=== PATIENT | male | born 1970 | race Caucasian/White ===

== ENCOUNTER → 2020-04-17 | Outpatient (CLI) | payer OTHER ==
--- NOTE | 2020-04-15 08:16 | NUR ---
LMOM WITH INSTRUCTIONS AND CALL BACK NUMBER
[~2020-04-17] VITALS: Ht 190.5 cm; Wt 118.2 kg
[~2020-04-17] MED LIST: CELEXA; COMPAZINE 110 MG/TAB PO; KLOR-CON/EF25 MEQ PO; LORTAB 5/500 501 TAB PO; MAG-OX 400400 MG/TAB PO; PROTONIX40 MG/Pack PO; REGLAN 5MG T5 MG/TAB PO; ROXICODONE 55 MG/TAB PO; ZITHROMAX 250M250 MG PO; ZOCOR; ZOFRAN ODT4 MG PO
[2020-04-17 08:33] VITALS: BP 126/91; PULSE 66
[2020-04-17 11:15] VITALS: BP 151/92; PULSE 53
== END | disposition home or self-care (01) ==
LOC: COL.RAD 08:15
DX: C77.0 Secondary and unspecified malignant neoplasm of lymph nodes of head, face and neck (principal); R59.0 Localized enlarged lymph nodes

== ENCOUNTER → 2020-05-06 | Outpatient (CLI) | payer OTHER | LOC: COL.RAD 08:30 | DX: R91.8 Other nonspecific abnormal finding of lung field (principal); C79.9 Secondary malignant neoplasm of unspecified site | CPT/HCPCS: Q9967 ==

== ENCOUNTER → 2020-06-07 | Outpatient (CLI) | payer OTHER ==
[~2020-06-07] VITALS: Ht 188 cm; Wt 121.0 kg
== END ==
LOC: DIET.TELE 12:43
DX: C02.8 Malignant neoplasm of overlapping sites of tongue (principal)
CPT/HCPCS: 98972

== ENCOUNTER 2020-07-17 14:14 | Day surgery (SDC) | payer OTHER ==
[~2020-07-17] VITALS: Ht 190.5 cm; Wt 106.0 kg
[~2020-07-17 14:14] MED LIST changes: -COMPAZINE 110 MG/TAB PO; -KLOR-CON/EF25 MEQ PO; -MAG-OX 400400 MG/TAB PO; -PROTONIX40 MG/Pack PO; -REGLAN 5MG T5 MG/TAB PO; -ROXICODONE 55 MG/TAB PO; -ZITHROMAX 250M250 MG PO; -ZOFRAN ODT4 MG PO
[2020-07-17 15:23] VITALS: BP 121/81; PULSE 83; TEMP 98.7
[2020-07-17] MEDS ORDERED: COMPAZINE 110 MG/TAB PO (15:34)
[2020-07-17] MEDS ORDERED: ROXICODONE 55 MG/TAB PO (15:36)
[2020-07-17 15:54] LABS: ALBUMIN 4.2 gm/dL (3.5-5.0); CALCIUM 8.8 mg/dL (8.4-10.2); CREATININE, serum 0.95 (0.66-1.25); POTASSIUM 5.2 mmol/L (3.4-5.0)
[2020-07-17 17:18] VITALS: BP 125/77; PULSE 81
--- NOTE | 2020-07-17 17:18 | NUR ---
PATIENT TRANSPORTED PER CART FROM OR TO BAY 8 ACCOMPANIED BY OR STAFF. PATIENT TALKING WITH STAFF. MONITORS APPLIED. VSS ON ROOM AIR. VERBAL REPORT RECEIVED FROM OR STAFF. 182 PATIENT DENIES DISCOMFORT AND NAUSEA. PATIENT TAKES SIPS OF WATER.
[2020-07-17 17:30] VITALS: BP 138/76; PULSE 78; TEMP 98.4
--- NOTE | 2020-07-17 17:35 | NUR ---
VSS ON ROOM AIR. PATIENT LOOKING AT PHONE. DENIES DISCOMFORT AND NAUSEA. SIPS WATER WITHOUT PROBLEMS.
[2020-07-17 17:45] VITALS: BP 129/78; PULSE 76
[2020-07-17 18:00] VITALS: BP 136/84; PULSE 74
--- NOTE | 2020-07-17 18:05 | NUR ---
VSS ON ROOM AIR. PATIENT DENIES DISCOMFORT AND NAUSEA. PORT ACCESS DC'D PER PROTOCOL. DISCHARGE INSTRUCTIONS GIVEN VERBAL AND DISCHARGE PACKET PROVIDED. QUESTIONS ANSWERED AND PATIENT VOICED UNDERSTANDING.
--- NOTE | 2020-07-18 10:43 | NUR ---
(Late Entry) [facility] met with patient who will have a PEG tube placed today. Patient lives alone in [place] and sees Dr. Spencer for primary care. Patient does not use any DME and reports independence with ADLS. Patient advised his cousin, Katerina will take him home today. Patient is agreeable to have PEG tube supplies ordered through [facility]. SW discussed Home Health services with patient who declined at this time. SW contacted [facility] and faxed facesheet, H&P, nutrition assessment, and DME order. Patient has no further questions or concerns at this time.
== END 2020-07-17 18:20 | disposition home or self-care (01) ==
LOC: SDCO 14:14
PROVIDERS: Surgery
DX: C76.0 Malignant neoplasm of head, face and neck (principal); C77.0 Secondary and unspecified malignant neoplasm of lymph nodes of head, face and neck; R13.12 Dysphagia, oropharyngeal phase; Z20.822 Contact with and (suspected) exposure to COVID-19; Z95.828 Presence of other vascular implants and grafts; Z92.3 Personal history of irradiation; Z92.21 Personal history of antineoplastic chemotherapy; Z79.899 Other long term (current) drug therapy
CPT/HCPCS: J0690; J2704; J3010; J7120

== ENCOUNTER 2020-08-20 08:40 | Inpatient (IN) | payer OTHER ==
[~2020-08-20] VITALS: Ht 193 cm; Wt 84.1 kg
[~2020-08-20 08:40] MED LIST changes: +COMPAZINE 110 MG/TAB PO; +ROXICODONE 55 MG/TAB PO
[2020-08-20 09:44] LABS: HEMATOCRIT 40.8 % (42.0-52.0); HEMOGLOBIN 13.1 g/dl (13.5-18.0); MEAN CELL VOLUME 95 fl (80.0-100.0); MEAN CORPUSCULAR HEMOGLOBIN 30 pg (27.0-31.0); MEAN CORPUSCULAR HGB CONC 32 g/dl (33.0-37.0); PLATELET COUNT 222 K/mm3 (130-400); RED BLOOD COUNT 4.31 M/mm3 (4.20-5.60); REDCELL DISTRIBUTION WIDTH-CV 16.1 % (11.5-14.5)
[2020-08-20 09:52] LABS: ALBUMIN 4.3 gm/dL (3.5-5.0); BILIRUBIN,TOTAL 1.8 mg/dL (0.0-1.0); CALCIUM 10.1 mg/dL (8.4-10.2); CREATININE, serum 2.66 (0.66-1.25); TOTAL PROTEIN 8.5 gm/dL (6.4-8.2)
[2020-08-20 10:07] LABS: INR 1.6 (0.8-3.0); PROTHROMBIN TIME 18.2 SECONDS (9.7-12.8)
[2020-08-20 10:10] LABS: ANISOCYTOSIS 1+; BAND 1 % (0-10); HYPOCHROMIA 2+; LYMPHOCYTE 10 % (20.0-51.0); METAMYELOCYTE 1 % (0-0); NEUTROPHILS 76 % (42.0-75.2); PLATELET ESTIMATE NORMAL (NORMAL)
[2020-08-20 11:14] LABS: TROPONIN-I 0.034 ng/mL (0.000-0.035)
[2020-08-20 11:29] LABS: C-REACTIVE PROTEIN 2.4 mg/dL (0.0-0.9)
[2020-08-20 16:00] VITALS: BP 149/96; PULSE 91; TEMP 98.5
[2020-08-20 16:35] LABS: CALCIUM 9.8 mg/dL (8.4-10.2); CREATININE, serum 2.36 (0.66-1.25); POTASSIUM 4.6 mmol/L (3.4-5.0)
[2020-08-20 21:00] VITALS: BP 141/87; PULSE 89; TEMP 98.8
[2020-08-20 22:39] LABS: CALCIUM 9.6 mg/dL (8.4-10.2); CREATININE, serum 2.26 (0.66-1.25); POTASSIUM 4.4 mmol/L (3.4-5.0)
[2020-08-21] VITALS (7 sets, daily range): BP systolic 126–148; BP diastolic 77–92; PULSE 70–86; TEMP 97.7–98.6
[2020-08-21 06:46] LABS: HEMOGLOBIN 11.8 g/dl (13.5-18.0); MEAN CELL VOLUME 96 fl (80.0-100.0); MEAN CORPUSCULAR HEMOGLOBIN 31 pg (27.0-31.0); MEAN CORPUSCULAR HGB CONC 32 g/dl (33.0-37.0); MEAN PLATELET VOLUME 10.2 fl (7.4-10.4); PLATELET COUNT 207 K/mm3 (130-400); RED BLOOD COUNT 3.85 M/mm3 (4.20-5.60); REDCELL DISTRIBUTION WIDTH-CV 16.5 % (11.5-14.5)
[2020-08-21 06:59] LABS: ALBUMIN 3.8 gm/dL (3.5-5.0); BILIRUBIN,TOTAL 1.5 mg/dL (0.0-1.0); CALCIUM 9.3 mg/dL (8.4-10.2); CREATININE, serum 1.99 (0.66-1.25); MAGNESIUM 3.1 mg/dL (1.6-2.3); POTASSIUM 3.7 mmol/L (3.4-5.0); TOTAL PROTEIN 7.4 gm/dL (6.4-8.2)
[2020-08-21 07:02] LABS: HEMATOCRIT 36.8 % (42.0-52.0)
[2020-08-21 07:07] LABS: INR 1.9 (0.8-3.0); PROTHROMBIN TIME 20.7 SECONDS (9.7-12.8)
[2020-08-21 08:19] LABS: ANISOCYTOSIS 1+; BAND 12 % (0-10); EOSINOPHIL 1 % (0-4); LYMPHOCYTE 20 % (20.0-51.0); MYELOCYTE 1 % (0-0); NEUTROPHILS 55 % (42.0-75.2); PLATELET ESTIMATE NORMAL (NORMAL)
[2020-08-21 08:20] LABS: HYPOCHROMIA 1+
[2020-08-21 14:50] LABS: CALCIUM 9.2 mg/dL (8.4-10.2); CREATININE, serum 1.75 (0.66-1.25); POTASSIUM 3.9 mmol/L (3.4-5.0)
[2020-08-21 21:22] LABS: CREATININE, serum 1.58 (0.66-1.25); POTASSIUM 3.7 mmol/L (3.4-5.0)
[2020-08-22 03:22] VITALS: BP 125/79; PULSE 91; TEMP 98.3
[2020-08-22 06:18] LABS: HEMOGLOBIN 10.1 g/dl (13.5-18.0); MEAN CELL VOLUME 94 fl (80.0-100.0); MEAN CORPUSCULAR HEMOGLOBIN 31 pg (27.0-31.0); MEAN CORPUSCULAR HGB CONC 33 g/dl (33.0-37.0); MEAN PLATELET VOLUME 9.8 fl (7.4-10.4); PLATELET COUNT 137 K/mm3 (130-400); REDCELL DISTRIBUTION WIDTH-CV 15.9 % (11.5-14.5)
[2020-08-22 06:27] LABS: HEMATOCRIT 31.1 % (42.0-52.0)
[2020-08-22 06:29] LABS: ALBUMIN 3.3 gm/dL (3.5-5.0); BILIRUBIN,TOTAL 1.6 mg/dL (0.0-1.0); CALCIUM 8.7 mg/dL (8.4-10.2); CREATININE, serum 1.43 (0.66-1.25); MAGNESIUM 2.5 mg/dL (1.6-2.3); POTASSIUM 3.4 mmol/L (3.4-5.0); TOTAL PROTEIN 6.7 gm/dL (6.4-8.2)
[2020-08-22 07:11] LABS: BAND 15 % (0-10); LYMPHOCYTE 16 % (20.0-51.0); NEUTROPHILS 62 % (42.0-75.2); PLATELET ESTIMATE NORMAL (NORMAL)
[2020-08-22 08:19] VITALS: BP 132/79; PULSE 72; TEMP 98.2
[2020-08-22 12:44] VITALS: BP 131/75; PULSE 74; TEMP 98.1
[2020-08-22 17:40] VITALS: BP 147/87; PULSE 77; TEMP 98.1
[2020-08-22 20:02] VITALS: BP 134/85; PULSE 73; TEMP 98.5
[2020-08-22 23:49] VITALS: BP 138/79; PULSE 85; TEMP 98.6
[2020-08-23 03:40] VITALS: BP 124/79; PULSE 73; TEMP 98.9
[2020-08-23 06:57] LABS: MEAN CELL VOLUME 93 fl (80.0-100.0); MEAN CORPUSCULAR HGB CONC 33 g/dl (33.0-37.0); MEAN PLATELET VOLUME 10.8 fl (7.4-10.4); PLATELET COUNT 126 K/mm3 (130-400); RED BLOOD COUNT 3.12 M/mm3 (4.20-5.60); REDCELL DISTRIBUTION WIDTH-CV 15.6 % (11.5-14.5)
[2020-08-23 07:17] LABS: CALCIUM 8.3 mg/dL (8.4-10.2); CREATININE, serum 1.14 (0.66-1.25); MAGNESIUM 2.1 mg/dL (1.6-2.3); POTASSIUM 3.2 mmol/L (3.4-5.0)
[2020-08-23 07:19] LABS: HEMATOCRIT 28.9 % (42.0-52.0); HEMOGLOBIN 9.5 g/dl (13.5-18.0); MEAN CORPUSCULAR HEMOGLOBIN 30 pg (27.0-31.0)
[2020-08-23 08:05] VITALS: BP 133/79; PULSE 70; TEMP 98.1
[2020-08-23 11:18] VITALS: BP 140/80; PULSE 72; TEMP 98
[2020-08-23 16:46] VITALS: BP 141/82; PULSE 73; TEMP 98.2
[2020-08-23 19:31] VITALS: BP 127/73; PULSE 79; TEMP 98.7
[2020-08-24 00:14] VITALS: BP 147/75; PULSE 75; TEMP 99.2
[2020-08-24 04:27] VITALS: BP 130/78; PULSE 76; TEMP 98.7
[2020-08-24 07:04] LABS: MEAN CELL VOLUME 92 fl (80.0-100.0); MEAN CORPUSCULAR HGB CONC 34 g/dl (33.0-37.0); MEAN PLATELET VOLUME 10.6 fl (7.4-10.4); PLATELET COUNT 120 K/mm3 (130-400); RED BLOOD COUNT 2.96 M/mm3 (4.20-5.60); REDCELL DISTRIBUTION WIDTH-CV 15.5 % (11.5-14.5)
[2020-08-24 07:11] LABS: HEMATOCRIT 27.3 % (42.0-52.0); HEMOGLOBIN 9.2 g/dl (13.5-18.0); MEAN CORPUSCULAR HEMOGLOBIN 31 pg (27.0-31.0)
[2020-08-24 07:18] LABS: CREATININE, serum 0.92 (0.66-1.25); MAGNESIUM 1.7 mg/dL (1.6-2.3); POTASSIUM 3.1 mmol/L (3.4-5.0)
[2020-08-24 07:41] VITALS: BP 135/84; PULSE 75; TEMP 98.8
[2020-08-24 12:14] VITALS: BP 117/73; PULSE 79; TEMP 99
[2020-08-24 12:30] LABS: IRON,SERUM 69 ug/dL (35-150)
[2020-08-24 12:40] LABS: TOTAL IRON BINDING CAPACITY 133 ug/dL (261-462)
[2020-08-24 17:01] VITALS: BP 129/73; PULSE 75; TEMP 99.1
[2020-08-24 19:46] VITALS: BP 123/73; PULSE 79; TEMP 98.7
[2020-08-25] VITALS (7 sets, daily range): BP systolic 107–137; BP diastolic 62–76; PULSE 74–85; TEMP 98.1–99.2
[2020-08-25 09:21] LABS: MEAN CELL VOLUME 90 fl (80.0-100.0); MEAN CORPUSCULAR HGB CONC 34 g/dl (33.0-37.0); MEAN PLATELET VOLUME 9.8 fl (7.4-10.4); PLATELET COUNT 117 K/mm3 (130-400); RED BLOOD COUNT 2.98 M/mm3 (4.20-5.60); REDCELL DISTRIBUTION WIDTH-CV 15.7 % (11.5-14.5)
[2020-08-25 09:26] LABS: HEMATOCRIT 26.8 % (42.0-52.0); MEAN CORPUSCULAR HEMOGLOBIN 30 pg (27.0-31.0)
[2020-08-25 09:29] LABS: ALBUMIN 2.7 gm/dL (3.5-5.0); CALCIUM 7.9 mg/dL (8.4-10.2); CREATININE, serum 0.81 (0.66-1.25); POTASSIUM 3.3 mmol/L (3.4-5.0); TOTAL PROTEIN 5.8 gm/dL (6.4-8.2)
[2020-08-25 10:28] LABS: BAND 5 % (0-10); LYMPHOCYTE 14 % (20.0-51.0); METAMYELOCYTE 3 % (0-0); NEUTROPHILS 74 % (42.0-75.2)
[2020-08-25 10:29] LABS: MICROCYTOSIS 2+; PLATELET ESTIMATE DECREASED (NORMAL)
[2020-08-25 10:30] LABS: ANISOCYTOSIS 1+
[2020-08-26 03:25] VITALS: BP 121/71; PULSE 78; TEMP 98.4
[2020-08-26 06:22] LABS: MEAN CELL VOLUME 91 fl (80.0-100.0); MEAN CORPUSCULAR HGB CONC 34 g/dl (33.0-37.0); MEAN PLATELET VOLUME 10.1 fl (7.4-10.4); PLATELET COUNT 119 K/mm3 (130-400); REDCELL DISTRIBUTION WIDTH-CV 15.9 % (11.5-14.5)
[2020-08-26 06:30] LABS: ALBUMIN 2.7 gm/dL (3.5-5.0); BILIRUBIN,TOTAL 0.7 mg/dL (0.0-1.0); CALCIUM 7.9 mg/dL (8.4-10.2); CREATININE, serum 0.8 (0.66-1.25); MAGNESIUM 1.7 mg/dL (1.6-2.3); PHOSPHOROUS 2.6 mg/dL (2.5-4.5); POTASSIUM 3.6 mmol/L (3.4-5.0); TOTAL PROTEIN 5.6 gm/dL (6.4-8.2)
[2020-08-26 06:31] LABS: HEMATOCRIT 25.4 % (42.0-52.0); HEMOGLOBIN 8.5 g/dl (13.5-18.0); MEAN CORPUSCULAR HEMOGLOBIN 30 pg (27.0-31.0)
[2020-08-26 07:38] LABS: BAND 15 % (0-10); EOSINOPHIL 2 % (0-4); LYMPHOCYTE 21 % (20.0-51.0); METAMYELOCYTE 2 % (0-0); NEUTROPHILS 51 % (42.0-75.2); PLATELET ESTIMATE DECREASED (NORMAL)
[2020-08-26 08:12] VITALS: BP 111/70; PULSE 77; TEMP 97.8
[2020-08-26 11:18] VITALS: BP 119/68; PULSE 75; TEMP 98
[2020-08-26 16:20] VITALS: BP 116/75; PULSE 78; TEMP 98.8
[2020-08-26 19:34] VITALS: BP 117/81; PULSE 77; TEMP 98.6
[2020-08-26 23:39] VITALS: BP 125/78; PULSE 74; TEMP 99.3
[2020-08-27 03:38] VITALS: BP 116/70; PULSE 74; TEMP 98.7
[2020-08-27 07:27] LABS: MEAN CELL VOLUME 93 fl (80.0-100.0); MEAN CORPUSCULAR HGB CONC 33 g/dl (33.0-37.0); MEAN PLATELET VOLUME 9.9 fl (7.4-10.4); PLATELET COUNT 135 K/mm3 (130-400); REDCELL DISTRIBUTION WIDTH-CV 16.2 % (11.5-14.5)
[2020-08-27 07:33] LABS: HEMOGLOBIN 8.3 g/dl (13.5-18.0); MEAN CORPUSCULAR HEMOGLOBIN 31 pg (27.0-31.0)
[2020-08-27 07:40] LABS: ALBUMIN 2.6 gm/dL (3.5-5.0); BILIRUBIN,TOTAL 0.6 mg/dL (0.0-1.0); CALCIUM 7.8 mg/dL (8.4-10.2); CREATININE, serum 0.73 (0.66-1.25); POTASSIUM 3.6 mmol/L (3.4-5.0); TOTAL PROTEIN 5.5 gm/dL (6.4-8.2)
[2020-08-27] MEDS ORDERED: ZITHROMAX 250M250 MG PO (08:47)
[2020-08-27] MEDS ORDERED: REGLAN 5MG T5 MG/TAB PO (08:49)
[2020-08-27] MEDS ORDERED: ZOFRAN ODT4 MG PO (08:51)
[2020-08-27] MEDS ORDERED: PROTONIX40 MG/Pack PO (08:51)
[2020-08-27] MEDS ORDERED: KLOR-CON/EF25 MEQ PO (08:54)
[2020-08-27] MEDS ORDERED: MAG-OX 400400 MG/TAB PO (08:56)
[2020-08-27 09:45] VITALS: BP 120/75; PULSE 75; TEMP 98.2
== END 2020-08-27 13:44 | disposition home or self-care (01) | DRG 682 ==
LOC: COL.ER 08:40 → MEDICAL 14:30
PROVIDERS: Emergency Medicine; Internal Medicine; Physician Assistant; ADMIT Internal Medicine
DX: N17.9 Acute kidney failure, unspecified (principal); E43 Unspecified severe protein-calorie malnutrition; E87.0 Hyperosmolality and hypernatremia; K59.00 Constipation, unspecified; J40 Bronchitis, not specified as acute or chronic; R13.10 Dysphagia, unspecified; R74.01 Elevation of levels of liver transaminase levels; E87.6 Hypokalemia; D64.9 Anemia, unspecified; E83.42 Hypomagnesemia; Z87.891 Personal history of nicotine dependence; Z85.01 Personal history of malignant neoplasm of esophagus; Z68.22 Body mass index [BMI] 22.0-22.9, adult
CPT/HCPCS: 99222-AI; 99232-AI; 99233-AI; 99239; C9113; J1644; J2270; J2765; J3475; J3480; J7030; Q9967

== ENCOUNTER → 2023-12-29 | Outpatient (CLI) | payer BC ==
[~2023-12-29] MED LIST changes: +Iohexol 300 - 100 ML VIAL IV ONE; +KLOR-CON/EF25 MEQ PO; +MAG-OX 400400 MG/TAB PO; +NS 100 ML IV SCH; +PROTONIX40 MG/Pack PO; +REGLAN 5MG T5 MG/TAB PO; +ZITHROMAX 250M250 MG PO; +ZOFRAN ODT4 MG PO
== END ==
LOC: COL.RAD 10:14
DX: R91.8 Other nonspecific abnormal finding of lung field (principal); K44.9 Diaphragmatic hernia without obstruction or gangrene; Z95.9 Presence of cardiac and vascular implant and graft, unspecified
CPT/HCPCS: Q9967